=== PATIENT | male | born 1950 | race Caucasian/White ===

== ENCOUNTER 2017-08-07 10:23 | Emergency (ER) | payer OTHER ==
[~2017-08-07] VITALS: Ht 185.4 cm; Wt 122.5 kg
[2017-08-07 11:02] LABS: ABSOLUTE BASOPHIL COUNT 0 /CUMM (0.0-0.2); ABSOLUTE EOSINOPHIL COUNT 0.2 /CUMM (0.0-0.7); ABSOLUTE GRANULOCYTE CT 3.6 /CUMM (1.4-6.5); ABSOLUTE LYMPH COUNT 1.2 /CUMM (1.2-3.4); ABSOLUTE MONOCYTE COUNT 0.9 /CUMM (0.10-0.60); BASOPHIL % 0.6 % (0.0-2.0); EOSINOPHIL % 2.8 % (0-5); GRANULOCYTE % 61.3 % (42.2-75.2); HEMATOCRIT 36.4 % (42-52); MEAN CORPUSCULAR HGB CONC 32.9 G/DL (33.0-37.0); MEAN CORPUSCULAR VOLUME 88.2 FL (80.0-94.0); MEAN PLATELET VOLUME 7.4 FL (7.4-10.4); PLATELET COUNT 240 /CUMM (130-400); RBC DISTRIBUTION WIDTH 18.6 % (11.5-14.5); RED BLOOD CELL CT 4.12 /CUMM (4.70-6.10); WHITE BLOOD CELL COUNT 5.9 /CUMM (4.8-10.8)
[2017-08-07] MEDS ORDERED: ASPIRIN EC325 M2 PO (11:20)
[2017-08-07] MEDS ORDERED: TOPROL XL50 M1 PO (11:20)
[2017-08-07 13:00] VITALS: BP 132/90
--- NOTE | 2017-08-07 13:53 | ED GENERAL ADULT ---
History of Present Illness General Chief Complaint: General Adult Stated Complaint: ?ETOH DETOX Source: patient Exam Limitations: no limitations Vital Signs & Intake/Output Vital Signs & Intake/Output Vital Signs Date Time Temp Pulse Resp B/P B/P Pulse O2 O2 Flow FiO2 Mean Ox Delivery Rate 08/07 1300 96.0 102 17 132/90 07/ 1203 98.0 102 17 132/90 96 Room Air 08/07 1052 98.1 109 15 129/91 07 1039 98.1 109 15 127/91 97 Room Air Room Air Allergies Coded Allergies: No Known Allergies (08/07/17) Reconcile Medications Aspirin (Ecotrin*) 325 MG TABLET.DR 1 TAB PO DAILY HEART HEALTH (Reported) Metoprolol Succ XL (Toprol Xl) 50 MG TAB 1 TAB PO DAILY HEART (Reported) Triage Note: PT TO ED STATING THAT 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 PT HAS BEEN SOBER X 1 WEEK, NORMALLY DRANK TWO 24 OZ BEERS AND 5 NIPS DAILY. DENIED SEIZURES DURING DETOX PERIOD. Triage Nurses Notes Reviewed? yes Onset: Abrupt Duration: week(s): (1), better, continues in ED Timing: recent history Injury Environment: home Severity: mild, moderate No Modifying Factors: none HPI: 66-year-old male history of a cold attendance and hypertension presents for evaluation of alcohol withdrawal. Patient reports she has not drank any alcohol in a week. He reports that he did have some shakes and nausea but this is gone away. He denies any history of withdrawal seizures. He reports that he usually drinks about 24 ounces of beer and 5 daily. 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 Patient denies suicidal or homicidal ideation. No drug use. He reports he currently feels pretty fine after not drinking for one week. (Israel Pope) Past History Travel History Traveled to [place] past 21 day No Medical History Any Pertinent Medical History? see below for history Cardiovascular: hypertension Gastrointestinal: GASTRIC BIPASS PARTIAL INTESTINE REMOVAL Surgical History Surgical History: non-contributory Psychosocial History What is your primary language Georgian Tobacco Use: Quit >30 days ago ETOH Use: alcoholic Illicit Drug Use: denies illicit drug use Family History Hx Contributory? No (Israel Pope) Review of Systems Review of Systems Constitutional: Reports: no symptoms. EENTM: Reports: no symptoms. Respiratory: Reports: no symptoms. Cardiovascular: Reports: no symptoms. GI: Reports: no symptoms. Genitourinary: Reports: no symptoms. Musculoskeletal: Reports: no symptoms. Skin: Reports: no symptoms. Neurological/Psychological: Reports: no symptoms. Hematologic/Endocrine: Reports: no symptoms. Immunologic/Allergic: Reports: no symptoms. All Other Systems: Reviewed and Negative (Israel Pope) Physical Exam Physical Exam General Appearance: well developed/nourished, no apparent distress, alert, awake Head: atraumatic, normal appearance Eyes: Bilateral: normal appearance, PERRL, EOMI. Ears, Nose, Throat: hearing grossly normal Neck: normal inspection, supple, full range of motion Respiratory: normal breath sounds, chest non-tender, no respiratory distress, lungs clear Cardiovascular: regular rate/rhythm, normal peripheral pulses Peripheral Pulses: 2+ radial (R), 2+ radial (L) Gastrointestinal: normal bowel sounds, soft, non-tender, no organomegaly Back: normal inspection, normal range of motion, no vertebral tenderness Extremities: normal inspection, normal range of motion, no edema Neurologic/Psych: no motor/sensory deficits, awake, alert, oriented x 3, normal gait Skin: intact, normal color, warm/dry Lymphatic: no anterior cervical cristela Core Measures ACS in differential dx? No CVA/TIA Diagnosis: No Sepsis Present: No Sepsis Focused Exam Completed? No (Israel Pope) Progress Differential Diagnoses I considered the following diagnoses in my evaluation of the patient: [Alcohol intoxication, alcohol withdrawal, drug intoxication, drug withdrawal] Plan of Care: Orders Procedure Date/time Status [facility] 08/07 1046 Active URINE DRUG SCREEN FOR ER ONLY 08/07 1033 Complete URINALYSIS 08/07 1033 Complete MAGNESIUM 08/07 1033 Complete ETHANOL 08/07 1033 Complete COMPREHENSIVE METABOLIC PANEL 08/07 1033 Complete CBC WITHOUT DIFFERENTIAL 08/07 1033 Complete Laboratory Tests 08/07/17 1107: Urine Opiates Screen < 100, Methadone Screen 56, Barbiturate Screen < 60, Ur Phencyclidine Scrn < 6.00, Amphetamines Screen < 100, U Benzodiazepines Scrn < 85, Urine Cocaine Screen < 50, Urine Cannabis Screen < 5.00, Urine Color YEL, Urine Clarity CLEAR, Urine pH 6.0, Ur Specific [place] >= 1.030, Urine Protein 30 H, Urine Ketones TRACE H, Urine Nitrite NEG, Urine Bilirubin NEG@ICTO, Urine Urobilinogen 1.0, Ur Leukocyte Esterase NEG, Ur Microscopic SEDIMENT EXAMINED, Urine RBC RARE, Urine WBC 1-3 H, Ur Epithelial Cells OCCAS, Urine Mucus FEW, Urine Hemoglobin NEG, Urine Glucose NEG 08/07/17 1055: Anion Gap 10, Estimated GFR > 60, BUN/Creatinine Ratio 14.0, Glucose 100 H, Calcium 9.3, Magnesium 1.8, Total Bilirubin 0.6, AST 24, ALT 24, Alkaline Phosphatase 97, Total Protein 7.1, Albumin 4.1, Globulin 3.0, Albumin/Globulin Ratio 1.4, CBC w Diff NO MAN DIFF REQ, RBC 4.12 L, MCV 88.2, MCH 29.0, MCHC 32.9 L, RDW 18.6 H, MPV 7.4, Gran % 61.3, Lymphocytes % 19.6 L, Monocytes % 15.7 H, Eosinophils % 2.8, Basophils % 0.6, Absolute Granulocytes 3.6, Absolute Lymphocytes 1.2, Absolute Monocytes 0.9 H, Absolute Eosinophils 0.2, Absolute Basophils 0, Serum Alcohol < 10.0 Patient is here for evaluation of alcohol withdrawal and detox. He has not drank in a week. He has no history of withdrawal seizures. He is not suicidal or homicidal. Labs are ordered patient will get CIWA exams. Blood work is not showing any significant acute findings. Alcohol level was negative. Initial CIWA score is 0. We'll continue to monitor the patient. Patient has been in the emergency department for possibly 4 hours now. His CIWA 's have been consistently 0. He appears clinically well. He has not drank in a week. He has no history of withdrawal seizures. Patient will be discharged with instructions to follow-up with outpatient rehabilitation/substance abuse facility. He was given a list. Discussed return precautions in detail case discussed with Dr. PRETTY and he agrees. Initial ED EKG: none (Israel Pope) Departure Departure Disposition: HOME OR SELF CARE Condition: Stable Clinical Impression Primary Impression: Alcohol withdrawal Qualifiers: Complication of substance-induced condition: uncomplicated Qualified Code: F10.230 - Alcohol dependence with withdrawal, uncomplicated Referrals: Edwin Lawler MD (PCP/Family) Additional Instructions: THERE IS NO SIGNS OF ALCOHOL WITHDRAWL AT THIS TIME THAT REQUIRES ADMISSION TO THE HOSPITAL. FOLLOW UP WITH PROVIDED LIST OF OUTPATIENT REHAB CENTERS. RETURN WITH ANY CONCERNS. AVOID ANY ALCOHOL. Departure Forms: Customer Survey General Discharge Information (Israel Pope) PA/PMO BUSINESS ANALYST Co-Sign Statement Statement: ED Attending supervision documentation- x I saw and evaluated the patient. I have also reviewed all the pertinent lab results and diagnostic results. I agree with the findings and the plan of care as documented in the PA's/PMO BUSINESS ANALYST's documentation. [] I have reviewed the ED Record and agree with the PA's/PMO BUSINESS ANALYST's documentation. [] Additions or exceptions (if any) to the PAs/PMO BUSINESS ANALYST's note and plan are summarized below: [] (Devante LAGOS,Kameron) Critical Care Note Critical Care Note Critical Care Time: non-applicable (Israel Pope)
== END 2017-08-07 14:39 ==
LOC: ERH 10:23
PROVIDERS: Physician Assistant Medical
DX: F10.20 Alcohol dependence, uncomplicated (principal); I10 Essential (primary) hypertension; Z87.891 Personal history of nicotine dependence
CPT/HCPCS: 80307; 81001; G0480